=== PATIENT | female | born 1975 | race Caucasian/White ===

== ENCOUNTER 2016-08-26 15:23 | Emergency (ER) | payer OTHER ==
[2016-08-26 16:39] LABS: BASOPHILS 0.4 % (0-2); EOSINOPHILS 6.6 % (0-7); HEMATOCRIT 41.4 % (36.0-48.0); IMMATURE GRANULOCYTES 0.2 % (0-5); LYMPHOCYTES 30.6 % (15-50); MCH 30.7 pg (26.0-34.0); MCHC 33.8 g/dL (31.0-37.0); MCV 90.8 fL (80.0-100.0); MEAN PLATELET VOLUME 9.8 fL (7.4-10.4); MONOCYTES 6.9 % (2-11); NEUTROPHILS 55.3 % (40-80); PLATELET COUNT 234 10x3/uL (130-400); RBC 4.56 10x6/uL (4.00-5.40); RDW 13.5 % (11.5-14.5); WBC 8.9 10x3/uL (4.8-10.8)
[2016-08-26 17:03] LABS: ALKALINE PHOSPHATASE 115 U/L (46-116); ALT (SGPT) 28 U/L (10-68); CALC OSMOLALITY 286 mosm/kg (275-300); CALCIUM 9.1 mg/dL (8.5-10.1); CARBON DIOXIDE 27.2 mmol/L (21.0-32.0); CHLORIDE - SERUM 106 mmol/L (98-107); CREATININE - SERUM 0.9 mg/dL (0.6-1.3); GLUCOSE 106 mg/dL (74-106); PROTEIN - SERUM 7.1 g/dL (6.4-8.2); SODIUM 143 mmol/L (136-145); UREA NITROGEN 17 mg/dL (7-18); eGFR NON AFRICAN AMERICAN 73 mL/min (90-120)
[2016-08-26 17:18] LABS: CHOL - HDL RATIO 6.3 ratio (2.3-4.1); CHOLESTEROL, TOTAL 220 mg/dL (0-200); CKMB 0.8 U/L (0.0-3.6); CREATINE KINASE 94 UL (21-215); HDL CHOLESTEROL 35 mg/dL (32-96); LDL CHOLESTEROL 117 mg/dL (0-100); LDL-HDL RATIO 3.3 ratio (1.5-3.5); TRIGLYCERIDE 344 mg/dL (30-200)
[2016-08-26 17:19] LABS: TROPONIN-I < 0.017 ng/mL (0.000-0.060)
== END 2016-08-26 17:45 | disposition home or self-care (01) ==
LOC: D.ER 15:23
PROVIDERS: Emergency Medicine
DX: R07.89 Other chest pain (principal); F15.90 Other stimulant use, unspecified, uncomplicated; F17.200 Nicotine dependence, unspecified, uncomplicated

== ENCOUNTER 2018-12-20 17:09 | Emergency (ER) | payer MEDICAID ==
[2018-12-20 17:41] VITALS: Wt 102.7 kg
[2018-12-20] MEDS ORDERED: TYLENOL W/CODEI1 TAB PO (19:44)
[2018-12-20 19:52] VITALS: BP 137/71
== END 2018-12-20 19:52 | disposition home or self-care (01) ==
LOC: D.ER 17:09
DX: S90.112A Contusion of left great toe without damage to nail, initial encounter (principal); X58.XXXA Exposure to other specified factors, initial encounter; Y93.89 Activity, other specified; Y92.89 Other specified places as the place of occurrence of the external cause